=== PATIENT | male | born 1970 | race Caucasian/White ===

== ENCOUNTER 2020-12-17 09:38 | Inpatient (IN) | payer BC ==
[~2020-12-17] VITALS: Ht 177.8 cm; Wt 82.1 kg
[2020-12-17] MEDS ORDERED: ACETAMINOPHEN 325MG TABLET PO STA (09:53)
[2020-12-17 10:21] LABS: HEMOGLOBIN. 13.1 g/dL (14.0-18.0); MEAN CORPUSCULAR HEMOGLOBIN 29.5 pg (28.0-32.0); MEAN CORPUSCULAR VOLUME 88.1 fL (80.0-94.0); MEAN PLATELET VOLUME 8.2 fl (7.4-10.4); PLATELET 280 x1000/uL (130-400); RED BLOOD CELL COUNT 4.43 mill/uL (4.7-6.1); RED CELL DISTRIBUTION WIDTH 13.8 % (11.6-14.6)
[2020-12-17 10:28] LABS: CHLORIDE 105 mEq/L (98-107)
[2020-12-17] MEDS ORDERED: SODIUM CHLORIDE 0.9% 1,000 ML IV ONE ×2 (10:30→12:15)
[2020-12-17 10:31] LABS: ETHANOL BLOOD < 10 mg/dL
[2020-12-17 10:34] LABS: CLARITY URINE CLEAR (CLEAR); COLOR URINE YELLOW (YELLOW); KETONES URINE 3+ (NEGATIVE); LEUKOCYTE ESTERASE URINE NEGATIVE (NEGATIVE); NITRITE URINE NEGATIVE (NEGATIVE); OCCULT BLOOD URINE 1+ (NEGATIVE); PROTEIN URINE 1+ (NEGATIVE); SPECIFIC GRAVITY URINE 1.027 (1.005-1.030); UROBILINOGEN URINE 0.2 E.U./dL (0.2-1.0)
[2020-12-17 10:54] LABS: PLATELET ESTIMATE NORMAL
[2020-12-17 10:58] LABS: *AMPHETAMINES SCREEN URINE NEGATIVE (NEGATIVE); *BARBITURATES SCREEN URINE NEGATIVE (NEGATIVE); *BENZODIAZEPINES SCREEN URINE NEGATIVE (NEGATIVE); *COCAINE SCREEN URINE NEGATIVE (NEGATIVE)
[2020-12-17 10:59] LABS: CANNABINOID URINE SCREEN PRESUMTIVE POSITIVE (NEGATIVE); METHADONE URINE SCREEN NEGATIVE (NEGATIVE); OPIATES URINE SCREEN NEGATIVE (NEGATIVE); PHENCYCLIDINE URINE SCREEN NEGATIVE (NEGATIVE)
[2020-12-17 11:51] LABS: BG BASE EXCESS -5.2 mmol/L (-2.0-2.0); BG CARBOXYHEMOGLOBIN 0.7 % (0.5-1.5); BG DEOXYHEMOGLOBIN 7.4 % (0.0-5.0); BG FRACTION INSPIRED OXYGEN 21; BG HCO3 ACT 18.1 mmol/L (22.0-26.0); BG METHEMOGLOBIN 0.3 % (0.0-1.5); BG OXYGEN SATURATION 92.5 % (92.0-98.5); BG OXYHEMOGLOBIN 91.6 % (94.0-97.0); BG PCO2 29.2 mmHg (35.0-45.0); BG PH 7.411 (7.350-7.450); BG PO2 63.2 mmHg (75.0-100.0); BG SAMPLE SITE RIGHT RADIAL; BG TOTAL HEMOGLOBIN 13.4 g/dL (12.0-18.0); BG VENT MODE ROOM AIR
[2020-12-17] MEDS ORDERED: ONDANSETRON HCL 4MG/2ML INJ IV ONE (12:15)
[2020-12-17] MEDS ORDERED: KETOROLAC 15MG/ML VIAL IV ONE (12:15)
[2020-12-17 22:00] VITALS: BP 111/46
[2020-12-17 23:00] VITALS: BP 111/46
[2020-12-18] VITALS: BP 110/66
[2020-12-18] MEDS ORDERED: DEXTROSE 50% WATER 50ML SYRINGE IV PRN
[2020-12-18 04:00] VITALS: BP 121/70
[2020-12-18] MEDS: BLOOD SUGAR DIAGNOSTIC STRIP TEST SCH ×4 (07:20→21:00)
[2020-12-18 08:00] VITALS: BP 124/66
[2020-12-18 08:15] LABS: BASOPHILS % 0.2 % (0.0-2.0); HEMATOCRIT. 35.4 % (42.0-52.0); HEMOGLOBIN. 11.7 g/dL (14.0-18.0); LYMPHOCYTES % 8.1 % (20.0-50.0); MEAN CORPUSCULAR HEMOGLOBIN 29.6 pg (28.0-32.0); MEAN CORPUSCULAR VOLUME 89.7 fL (80.0-94.0); MEAN PLATELET VOLUME 8.9 fl (7.4-10.4); MONOCYTES % 8.3 % (2.0-8.0); NEUTROPHILS % 83.4 % (40.0-76.0); PLATELET 232 x1000/uL (130-400); RED BLOOD CELL COUNT 3.94 mill/uL (4.7-6.1)
[2020-12-18] MEDS: METFORMIN HCL 500MG TABLET PO SCH ×2 (08:40→18:09)
[2020-12-18] MEDS: ASPIRIN 81MG EC TABLET PO SCH (08:40)
[2020-12-18] MEDS: LISINOPRIL 40MG TABLET PO SCH (08:41)
[2020-12-18] MEDS: AMLODIPINE 10MG TABLET PO SCH (08:41)
[2020-12-18] MEDS: INSULIN LISPRO 100 UNITS/ML SUBCUT SCH ×4 (08:47→21:32)
[2020-12-18 08:55] LABS: CHLORIDE 109 mEq/L (98-107)
[2020-12-18 09:02] LABS: HDL CHOLESTEROL 43 mg/dL (40-59)
[2020-12-18 09:04] LABS: LDL CHOLESTEROL 61 mg/dL (5-100)
[2020-12-18] MEDS: INSULIN GLARGINE UD 100 UNITS/ML SYR SUBCUT SCH ×2 (10:52→22:14)
[2020-12-18 12:00] VITALS: BP 104/53
[2020-12-18 16:00] VITALS: BP 108/53
[2020-12-18] MEDS ORDERED: NALOXONE HCL 0.4MG/ML VIAL IV PRN (19:45)
[2020-12-18 20:00] VITALS: BP 126/73
[2020-12-18] MEDS: ATORVASTATIN CALCIUM 40MG TABLET PO SCH (21:29)
[2020-12-19] VITALS: BP 122/74
[2020-12-19 04:00] VITALS: BP 116/70
[2020-12-19] MEDS: BLOOD SUGAR DIAGNOSTIC STRIP TEST SCH ×4 (07:20→21:30)
[2020-12-19 08:57] LABS: BASOPHILS % 0.3 % (0.0-2.0); EOSINOPHILS % 0.1 % (0.0-5.0); HEMATOCRIT. 36.5 % (42.0-52.0); HEMOGLOBIN. 12.6 g/dL (14.0-18.0); LYMPHOCYTES % 15.1 % (20.0-50.0); MEAN CORPUSCULAR HEMOGLOBIN 30.5 pg (28.0-32.0); MEAN CORPUSCULAR VOLUME 88.1 fL (80.0-94.0); MEAN PLATELET VOLUME 8.2 fl (7.4-10.4); MONOCYTES % 9.6 % (2.0-8.0); NEUTROPHILS % 74.9 % (40.0-76.0); PLATELET 218 x1000/uL (130-400); RED BLOOD CELL COUNT 4.14 mill/uL (4.7-6.1); RED CELL DISTRIBUTION WIDTH 13.5 % (11.6-14.6)
[2020-12-19 09:07] LABS: CHLORIDE 109 mEq/L (98-107)
[2020-12-19] MEDS: ASPIRIN 81MG EC TABLET PO SCH (09:31)
[2020-12-19] MEDS: LISINOPRIL 40MG TABLET PO SCH (09:31)
[2020-12-19] MEDS: AMLODIPINE 10MG TABLET PO SCH (09:31)
[2020-12-19] MEDS: INSULIN LISPRO 100 UNITS/ML SUBCUT SCH ×4 (09:35→21:35)
[2020-12-19] MEDS ORDERED: INSU100I28 SQ (11:23)
[2020-12-19] MEDS: METFORMIN HCL 500MG TABLET PO SCH ×2 (13:23→19:06)
[2020-12-19 14:36] VITALS: BP 128/70
[2020-12-19 20:00] VITALS: BP 127/74
[2020-12-19] MEDS: HYDROCODONE/ACETAMINOPHEN 5/325MG TABLET PO PRN (20:00)
[2020-12-19] MEDS: ATORVASTATIN CALCIUM 40MG TABLET PO SCH (21:23)
[2020-12-19] MEDS: INSULIN GLARGINE UD 100 UNITS/ML SYR SUBCUT SCH (21:36)
[2020-12-20] VITALS: BP 109/57
[2020-12-20 04:00] VITALS: BP 100/51
[2020-12-20] MEDS: BLOOD SUGAR DIAGNOSTIC STRIP TEST SCH (06:29)
[2020-12-20] MEDS: HYDROCODONE/ACETAMINOPHEN 5/325MG TABLET PO PRN ×2 (06:45→11:04)
[2020-12-20 08:00] VITALS: BP 132/73
[2020-12-20] MEDS: METFORMIN HCL 500MG TABLET PO SCH (08:14)
[2020-12-20] MEDS: INSULIN LISPRO 100 UNITS/ML SUBCUT SCH (08:46)
[2020-12-20] MEDS: ASPIRIN 81MG EC TABLET PO SCH (09:14)
[2020-12-20] MEDS: LISINOPRIL 40MG TABLET PO SCH (09:15)
[2020-12-20] MEDS: AMLODIPINE 10MG TABLET PO SCH (09:15)
[2020-12-20] MEDS: INSULIN GLARGINE UD 100 UNITS/ML SYR SUBCUT SCH (09:43)
[2020-12-20 12:00] VITALS: BP 129/77
== END 2020-12-20 12:04 | disposition home or self-care (01) | DRG 871 ==
LOC: ER 09:38 → 6EST 17:17 → EDBEDREQ 17:29 → EDBEDREQTM 17:29 → ENRESERV 20:52
PROVIDERS: ADMIT Internal Medicine; ATTEND Internal Medicine
DX: A41.9 Sepsis, unspecified organism (principal); G93.41 Metabolic encephalopathy; M84.48XA Pathological fracture, other site, initial encounter for fracture; D64.9 Anemia, unspecified; F12.90 Cannabis use, unspecified, uncomplicated; G89.29 Other chronic pain; N20.0 Calculus of kidney; N32.89 Other specified disorders of bladder; Z20.822 Contact with and (suspected) exposure to COVID-19; E11.65 Type 2 diabetes mellitus with hyperglycemia; I10 Essential (primary) hypertension; N13.9 Obstructive and reflux uropathy, unspecified; D72.829 Elevated white blood cell count, unspecified; R32 Unspecified urinary incontinence; Z90.49 Acquired absence of other specified parts of digestive tract
CPT/HCPCS: 36415; 36600; 71045; 72128; 72131; 74176; 80048; 80053; 80061; 80305; 80307; 80320; 80329; 81003; 82010; 82375; 82805; 82962; 83036; 84145; 84443; 84484; 85025; 87426; 93005; 97161; 99285; J1815; J1885; J2405; J7030; G0480